=== PATIENT | male | born 1990 | race Caucasian/White ===

== ENCOUNTER 2022-03-30 15:23 | Emergency (ER) | payer MEDICAID ==
[~2022-03-30] VITALS: Ht 200.7 cm; Wt 81.0 kg
[2022-03-30 16:39] VITALS: BP 114/69
[2022-03-30] MEDS ORDERED: PENI500T2 PO (17:55)
[2022-03-30] MEDS ORDERED: IBUP-1985 PO (17:55)
--- NOTE | 2022-03-31 12:05 | NUR ---
Patient called and stated that prescriptions were sent to a pharmacy that is currently closed and would like ibuprofen and Penicilin VK to be sent to [facility] on [address]. Prescriptions called in to [facility] per patients request.
== END 2022-03-30 18:09 | disposition home or self-care (01) ==
LOC: ER 15:24
DX: K02.9 Dental caries, unspecified (principal); K04.7 Periapical abscess without sinus; M26.609 Unspecified temporomandibular joint disorder, unspecified side; F12.90 Cannabis use, unspecified, uncomplicated; Z87.891 Personal history of nicotine dependence
CPT/HCPCS: 99283